=== PATIENT | female | born 1970 | race Caucasian/White ===

== ENCOUNTER 2019-09-15 08:17 | Emergency (ER) | payer SELFPAY | END 2019-09-15 08:30 | disposition left against medical advice (07) | LOC: JD.ED 08:17 | DX: Z53.21 Procedure and treatment not carried out due to patient leaving prior to being seen by health care provider (principal) ==

== ENCOUNTER 2023-11-24 22:56 | Emergency (ER) | payer BC, OTHER ==
[2023-11-25 01:06] VITALS: BP 139/95; PULSE 99
== END 2023-11-25 00:56 ==
LOC: JD.ED 22:56
DX: S83.422A Sprain of lateral collateral ligament of left knee, initial encounter (principal); F17.210 Nicotine dependence, cigarettes, uncomplicated; Z88.2 Allergy status to sulfonamides; Z79.899 Other long term (current) drug therapy; X50.1XXA Overexertion from prolonged static or awkward postures, initial encounter; Y93.89 Activity, other specified; Y99.0 Civilian activity done for income or pay
CPT/HCPCS: 73564-26-LT; 73564-LT; 99283